=== PATIENT | female | born 1995 | race Two or more races ===

== ENCOUNTER 2019-10-18 21:34 | Emergency (ER) | payer MEDICAID, OTHER ==
[~2019-10-18] VITALS: Ht 160 cm; Wt 71.1 kg
--- NOTE | 2019-10-18 22:11 | NUR ---
PT C/O EPIGASTRIC PAIN AND SUBSTERNAL PAIN FOR LAST MONTH AFTER HAVING GALL BLADDER REMOVED. C/O INTERMITTENT N/V/D. PT NOT BEING ABLE TO EAT MUCH. CONNECTED TO MONITORING. CALL LIGHT IN REACH. PROVIDER AT BEDSIDE. AWAITING ORDERS AT THIS TIME.
[2019-10-18] MEDS ORDERED: KETOROLAC 30 MG/1 ML IM ONE (22:30)
[2019-10-18] MEDS ORDERED: KETOROLAC 30 MG/1 ML ONE (22:43)
--- NOTE | 2019-10-18 22:48 | NUR ---
MEDS ADMIN PER DEC. LAB AT BEDSIDE.
[2019-10-18 22:50] LABS: BASOPHILS # (AUTO) 0.04 x10^3/uL (0-0.1); BASOPHILS % (AUTO) 1 % (0-1); EOSINOPHILS # (AUTO) 0.07 x10^3/uL (0-0.4); EOSINOPHILS % (AUTO) 1 % (1-7); LYMPHOCYTES # (AUTO) 2.37 x10^3/uL (1-3.4); LYMPHOCYTES % (AUTO) 49 % (22-44); MD NO; MEAN CORPUSCULAR HEMOGLOBIN 29.1 pg (27.0-34.8); MEAN CORPUSCULAR HGB CONC 33.3 g/dL (32.4-35.8); MEAN CORPUSCULAR VOLUME 87.3 fL (80-100); MEAN PLATELET VOLUME 9.6 fL (7.4-10.4); MONOCYTES # (AUTO) 0.37 x10^3/uL (0.2-0.8); MONOCYTES % (AUTO) 8 % (2-9); NEUTROPHILS # (AUTO) 2.04 x10^3/uL (1.8-6.8); NEUTROPHILS % (AUTO) 42 % (42-75); PLATELET COUNT 144 x10^3/uL (130-400); RED BLOOD COUNT 4.28 x10^6/uL (3.82-5.3); RED CELL DISTRIBUTION WIDTH 13.9 % (9.6-15.2)
[2019-10-18 23:03] LABS: ALANINE AMINOTRANSFERASE 22 U/L (12-78); ALBUMIN 3.5 g/dL (3.4-5.0); ANION GAP 7 mmol/L (5-15); CALCIUM 8.2 mg/dL (8.5-10.1); CHLORIDE 108 mmol/L (98-107); CREATININE 0.79 mg/dL (0.55-1.02)
[2019-10-18 23:07] LABS: ALKALINE PHOSPHATASE 41 U/L (45-117); BILIRUBIN,TOTAL 0.4 mg/dL (0.2-1.0); TROPONIN I < 0.015 ng/mL (0.000-0.045)
--- NOTE | 2019-10-18 23:10 | NUR ---
ALL RESULTS ARE BACK AT THIS TIME. CHART UP FOR RECHECK.
[2019-10-18 23:11] VITALS: BP 103/70
--- NOTE | 2019-10-18 23:11 | NUR ---
PT RESTING COMFORTABLY ON GURMAGGIE. LINNEA. MOM AT BEDSIDE.
--- NOTE | 2019-10-18 23:20 | NUR ---
MD AT BEDSIDE TO UPDATE PT AND FAMILY ON POC.
== END 2019-10-18 23:40 | disposition home or self-care (01) ==
LOC: ED 22:23
DX: R07.89 Other chest pain (principal); R42 Dizziness and giddiness; R11.2 Nausea with vomiting, unspecified; Z90.49 Acquired absence of other specified parts of digestive tract
CPT/HCPCS: 36415; 71046; 80053; 84484; 85025; 93005; 96372; 99284; J1885